=== PATIENT | male | born 1985 | race Caucasian/White ===

== ENCOUNTER 2016-09-14 15:52 | Emergency (ER) | payer BC, OTHER ==
[2016-09-14] MEDS ORDERED: Methocarbamol TAB* 500 MG PO ONE (17:40)
[2016-09-14] MEDS ORDERED: Ketorolac INJ* 30 MG/ML 1 ML VIAL IM ONE (17:40)
[2016-09-14] MEDS ORDERED: Ketorolac INJ* 60 MG/2 ML VIAL IM ONE (17:41)
[2016-09-14] MEDS ORDERED: oxyCODONE/Acetamin 5/325 MG* TAB PO ONE (17:42)
--- NOTE | 2016-09-14 18:29 | RAD ---
INDICATION: Back injury COMPARISON: None TECHNIQUE: Noncontrast axial source images was performed from the thoracolumbar junction to the sacrum. Coronal and and sagittal reformatted images were generated. FINDINGS: Vertebrae: There is no fracture or acute focal bony lesion. There is a chronic L5 spondylolysis. Alignment: The lumbar vertebrae are normally aligned. Central Canal: There are no significant CT abnormalities of the central canal or foramina. MR imaging is a more sensitive method to evaluate the canal and foramina. Intervertebral disc spaces: Moderate degenerative narrowing at L5-S1. Soft tissues: The paravertebral soft tissues are normal. Other: None IMPRESSION: CHRONIC, BILATERAL L5 SPONDYLOLYSIS WITH DEGENERATIVE DISC DISEASE. NO EVIDENCE OF ANTEROLISTHESIS.
--- NOTE | 2016-09-14 18:41 | ED ---
Back Pain - HPI Summary HPI Summary: 31M presents with back pain today. He was lifting something and felt a pull in his lower back. This occurred at work. He states that this is how he caused one of his disks to slip before. He says the pain is right across his entire lower back. He denies any numbness or tingling or pain down his leg. He states he has not had back pain in a while. He denies any loss of bowel or bladder or saddle anaesthesia. He denies any fever. He has not taken anything for pain. He denies any weakness and is still able to ambulate. - History of Current Complaint Chief Complaint: EDBackInjuryPain Stated Complaint: LOWER BACK INJURY-WORK INJURY Time Seen by Provider: 09/14/16 17:08 Pain Intensity: 5 - Allergies/Home Medications Allergies/Adverse Reactions: Allergies Allergy/AdvReac Type Severity Reaction Status Date / Time Penicillins Allergy Hives Verified 09/14/16 16:01 hayfever Allergy Sneezing Uncoded 09/14/16 16:01 PMH/Surg Hx/FS Hx/Imm Hx Endocrine/Hematology History: Denies: Hx Diabetes Cardiovascular History: Denies: Hx Hypertension, Hx Pacemaker/ICD Respiratory History: Reports: Hx Asthma - as child History: Denies: Hx Renal Disease Sensory History: Denies: Hx Hearing Aid Psychiatric History: Denies: Hx Panic Disorder - Surgical History Surgery Procedure, Year, and Place: tonsils Infectious Disease History: Denies: Hx Clostridium Difficile, Hx Hepatitis, Hx Human Immunodeficiency Virus (HIV), Hx of Known/Suspected MRSA, Hx Shingles, Hx Tuberculosis, Hx Known/ Suspected VRE, Hx Known/Suspected VRSA, History Other Infectious Disease, Traveled Outside the [place] in Last 30 Days - Family History Known Family History: Positive: None - Social History Alcohol Use: Rare Substance Use Type: Reports: None Smoking Status (MU): Current Every Day Smoker Amount Used/How Often: 1/2 ppd Review of Systems Negative: Fever Negative: Chest Pain Negative: Shortness Of Breath Positive: Myalgia - back pain All Other Systems Reviewed And Are Negative: Yes Physical Exam Triage Information Reviewed: Yes Vital Signs On Initial Exam: Initial Vitals Temp Pulse Resp BP Pulse Ox 98.6 F 96 16 127/89 97 09/14/16 16:01 09/14/16 16:01 09/14/16 16:01 09/14/16 16:01 09/14/16 16:01 Vital Signs Reviewed: Yes Appearance: Positive: Well-Appearing Skin: Positive: Warm, Dry Head/Face: Positive: Normal Head/Face Inspection Eyes: Positive: Normal, Conjunctiva Clear ENT: Positive: Normal ENT inspection, Pharynx normal, TMs normal Respiratory/Lung Sounds: Positive: Clear to Auscultation, Breath Sounds Present Cardiovascular: Positive: Normal, RRR Musculoskeletal: Positive: Limited @ - back, Other - tenderness across lower back, neg SLR Diagnostics - Vital Signs Vital Signs Temp Pulse Resp BP Pulse Ox 09/14/16 18:01 20 09/14/16 16:01 98.6 F 96 16 127/89 97 - Laboratory Lab Statement: Any lab studies that have been ordered have been reviewed, and results considered in the medical decision making process. - CT back CT Interpretation: Positive (See Comments) - IMPRESSION: CHRONIC, BILATERAL L5 SPONDYLOLYSIS WITH DEGENERATIVE DISC DISEASE. NO EVIDENCE OF ANTEROLISTHESIS. CT Interpretation Completed By: Radiologist Back Pain Course/Dx - Course Course Of Treatment: 31M presents with back pain today. He was lifting something and felt a pull in his lower back. This occurred at work. He states that this is how he caused one of his disks to slip before. He says the pain is right across his entire lower back. He denies any numbness or tingling or pain down his leg. He states he has not had back pain in a while. He denies any loss of bowel or bladder or saddle anaesthesia. He denies any fever. He has not taken anything for pain. He denies any weakness and is still able to ambulate. CT lumbar no acute changes. will d/c with muscle relaxer and steriod and told to follow up with primary. patient understands and agrees with plan. - Diagnoses Differential Diagnosis/HQI/PQRI: Positive: Herniated Disc, Strain, Sprain Provider Diagnoses: Back pain Discharge - Discharge Plan Condition: Good Disposition: HOME Prescriptions: Methocarbamol [Robaxin-750 MG TAB] 750 mg PO TID #15 tab Methylprednisolone [Medrol Dosepak 4 MG*] 4 mg PO .SEE CHRISTINA INSTRUCTION #1 packet Patient Education Materials: Back Pain (ED) Forms: *Work Release Referrals: Ruby Soria PA [Primary Care Provider] - Additional Instructions: Follow directions on package for Medrol pack Take muscle relaxers three times a day for 5 days Use ibuprofen or Tylenol for pain every 6 hours ice/heat area, move as much as possible Follow up with primary within 5 days Return to ED if develop any new or worsening symptoms
[2016-09-14 19:40] VITALS: BP 109/78
== END 2016-09-14 19:41 | disposition home or self-care (01) ==
LOC: ED 15:52
DX: M54.5 Low back pain (principal); F17.210 Nicotine dependence, cigarettes, uncomplicated
CPT/HCPCS: 72131; 96372; 99282; A9270-GY; J1885

== ENCOUNTER 2017-08-31 09:43 | Emergency (ER) | payer BC ==
[2017-08-31 10:15] VITALS: BP 127/87
--- NOTE | 2017-08-31 10:31 | UC ---
Back Pain HPI - HPI Summary HPI Summary: Dahlia Shearer, scribed for attending Catrachita Lisa MD. Pt is a 32 y/o M who presents to ED c/o lumbar back pain. Pt reports that on Saturday (3 days ago) he was working on his girlfriend's car during which he "twinged" his back. Then, upon waking up on (2 days ago) he began experiencing lumbar back pain, at about L4/L5, similar to prior disc herniations. Symptoms have begun radiating bilaterally down the LE and into the bilateral hips. On triage, pain is severe ranked 8/10, characterized as spasmodic, sharp and tight. Has been taking Tylenol and Advil which is not helping and cannot sleep secondary to pain. PMHx prior disc herniations for which he has seen a neurologist, though reports he has never had an MRI. Current symptoms are similar to prior herniations. Has an appointment with his PCP on Saturday (in 2 days). - History of Current Complaint Chief Complaint: UCBackPain Stated Complaint: BACK PAIN Time Seen by Provider: 08/31/17 10:23 Hx Obtained From: Patient Onset/Duration: Lasting Days - 2 days, Still Present Severity Currently: Severe Pain Intensity: 8 Pain Scale Used: 0-10 Numeric Back Pain: Is Discrete @ - Lumbar back (L4/L5), Radiates To - Bilateral hips and LE Character: Sharp, Spasmodic Aggravating Factor(s): Nothing Alleviating Factor(s): Nothing Associated Signs And Symptoms: Positive: Negative Related History: Similar Episode Dx As - Prior disc herniations - Allergies/Home Medications Allergies/Adverse Reactions: Allergies Allergy/AdvReac Type Severity Reaction Status Date / Time Penicillins Allergy unk Verified 08/31/17 10:17 hayfever Allergy Sneezing Uncoded 09/14/16 16:01 PMH/Surg Hx/FS Hx/Imm Hx - Additional Past Medical History Additional PMH: PMHx: Disc herniations Negative PMHx: HTN, DM Respiratory History: Asthma - As a child - Surgical History Surgical History: Yes Surgery Procedure, Year, and Place: tonsils - Family History Known Family History: Negative: Cardiac Disease - Social History Occupation: Employed Full-time Lives: With Family - S/o Alcohol Use: Rare Substance Use Type: None Smoking Status (MU): Former Smoker Amount Used/How Often: 1/2 ppd Review of Systems Constitutional: Negative Skin: Negative Eyes: Negative ENT: Negative Respiratory: Negative Cardiovascular: Negative Gastrointestinal: Negative Genitourinary: Negative Motor: Negative Neurovascular: Negative Musculoskeletal: Other: - Lumbar back pain radiating to bilateral LE and hips Neurological: Negative Psychological: Negative All Other Systems Reviewed And Are Negative: Yes Physical Exam - Summary Physical Exam Summary: Appearance: Well-appearing, Well-nourished Skin: Warm Eyes: Normal ENT: Normal Neck: Supple, nontender Respiratory: Clear to auscultation Cardiovascular: Regular rate, regular rhythm. Normal S1, S2. Abdomen: Soft, nontender Musculoskeletal: Moderate lower paraspinal tenderness at the level of L4-5 radiating to the bilateral buttocks and upper posterior thigh Neurological: Normal, A&Ox3 Psychiatric: Normal General: No acute distress Triage Information Reviewed: Yes Vital Signs: Initial Vital Signs Temp 98 F 08/31/17 10:10 Pulse 74 08/31/17 10:10 Resp 16 08/31/17 10:10 BP 127/87 08/31/17 10:10 Pulse Ox 100 08/31/17 10:10 Vital Signs Reviewed: Yes Back Pain Course/Dx - Differential Dx/Diagnosis Provider Diagnoses: Low back pain, lumbar radiculopathy Discharge - Sign-Out/Discharge Documenting (check all that apply): Patient Departure - Discharge - Discharge Plan Condition: Stable Disposition: HOME Prescriptions: Naproxen [Naproxen 500 mg tab] 500 mg PO BID 10 Days #20 tablet Tizanidine HCl 4 mg PO BEDTIME 5 Days #5 capsule Patient Education Materials: Lumbar Radiculopathy (ED), Back Pain (ED) Forms: *Work Release Referrals: Ruby Soria PA [Primary Care Provider] - 09/02/17 (Continue with scheduled follow up on Saturday. ) Additional Instructions: RETURN TO URGENT CARE OR ED FOR ANY CHANGING OR WORSENING SYMPTOMS. - Billing Disposition and Condition Condition: STABLE Disposition: Home
[2017-08-31] MEDS ORDERED: Ketorolac INJ* 60 MG/2 ML VIAL IM ONE (10:34)
== END 2017-08-31 10:50 | disposition home or self-care (01) ==
LOC: UCEAST 09:43
DX: M51.16 Intervertebral disc disorders with radiculopathy, lumbar region (principal); M54.5 Low back pain; Z91.09 Other allergy status, other than to drugs and biological substances; Z88.0 Allergy status to penicillin; Z87.891 Personal history of nicotine dependence
CPT/HCPCS: 96372; 99211; G0463; J1885

== ENCOUNTER 2018-06-23 07:36 | Emergency (ER) | payer BC ==
[2018-06-23] MEDS ORDERED: Ketorolac INJ* 30 MG/ML 1 ML VIAL IM ONE (07:53)
--- NOTE | 2018-06-23 07:57 | ED ---
Back Pain - HPI Summary HPI Summary: The patient is a 33 year old M presenting to [facility] accompanied by with a chief complaint of lower back pain radiating bilaterally down the front and back of the LE since yesterday 06/22/18. Patient reports swelling at lower back. Patient rested and used ice and heat after pain onset. 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 Per triage, patient believes he slipped his disc again and took Motrin 400mg at 0400 this morning. The patient rates the pain 8/10 in severity. Patient reports aggravating factors of movement, bending over, laying down, lifting, increased pain while walking on L leg, and increased pain at rest on R side. Patient also reported decreased ROM due to pain. Patient reported using icy-hot and Motrin as alleviating factors but stressed that they did not help the pain. Patient has a history of slipped discs in L4 and L5. - History of Current Complaint Chief Complaint: EDBackInjuryPain Stated Complaint: BACK PAIN POSS SLIPPED DISK PER PT Time Seen by Provider: 06/23/18 07:44 Hx Obtained From: Patient Onset/Duration: Sudden Onset, Lasting Days - 1, Still Present Onset/Duration: Started Days Ago - 1, Still Present Timing: Constant Back Pain Location: Is Discrete @ - lower back, Radiates To - bilateral LE Severity Initially: Severe Severity Currently: Severe Pain Intensity: 8 Pain Scale Used: 0-10 Numeric Aggravating Symptom(s): Movement, Lifting, Bending, Walking, Other - Lying on back Alleviating Symptom(s): Nothing Associated Signs And Symptoms: Positive: Swelling - at lower back - Allergies/Home Medications Allergies/Adverse Reactions: Allergies Allergy/AdvReac Type Severity Reaction Status Date / Time Penicillins Allergy unk Verified 06/23/18 07:48 hayfever Allergy Sneezing Uncoded 06/23/18 07:48 Home Medications: Home Medications NK [No Home Medications Reported] 06/23/18 [History Confirmed 06/23/18] PMH/Surg Hx/FS Hx/Imm Hx Endocrine/Hematology History: Denies: Hx Diabetes Cardiovascular History: Denies: Hx Hypertension, Hx Pacemaker/ICD Respiratory History: Reports: Hx Asthma - as child History: Denies: Hx Renal Disease Sensory History: Denies: Hx Hearing Aid Psychiatric History: Denies: Hx Panic Disorder - Surgical History Surgery Procedure, Year, and Place: tonsils Infectious Disease History: No Infectious Disease History: Denies: Hx Clostridium Difficile, Hx Hepatitis, Hx Human Immunodeficiency Virus (HIV), Hx of Known/Suspected MRSA, Hx Shingles, Hx Tuberculosis, Hx Known/ Suspected VRE, Hx Known/Suspected VRSA, History Other Infectious Disease, Traveled Outside the [place] in Last 30 Days - Family History Known Family History: Negative: Cardiac Disease - Social History Alcohol Use: Rare Hx Substance Use: No Substance Use Type: Reports: None Hx Tobacco Use: Yes Smoking Status (MU): Former Smoker Amount Used/How Often: 1/2 ppd Review of Systems Negative: Fever Positive: Myalgia - lower back pain radiating to bilateral LE, Decreased ROM All Other Systems Reviewed And Are Negative: Yes Physical Exam - Summary Physical Exam Summary: Appearance: The patient is well-nourished in no acute distress and in no acute pain. Skin: The skin is warm and dry and skin color reflects adequate perfusion. HEENT: The head is normocephalic and atraumatic. The pupils are equal and reactive. The conjunctivae are clear and without drainage. Nares are patent and without drainage. Mouth reveals moist mucous membranes and the throat is without erythema and exudate. The external ears are intact. The ear canals are patent and without drainage. The tympanic membranes are intact. Neck: The neck is supple with full range of motion and non-tender. There are no carotid bruits. There is no neck vein distension. Respiratory: Chest is non-tender. Lungs are clear to auscultation and breath sounds are symmetrical and equal. Cardiovascular: Heart is regular rate and rhythm. There is no murmur or rub auscultated. There is no peripheral edema and pulses are symmetrical and equal. Abdomen: The abdomen is soft and non-tender. There are normal bowel sounds heard in all four quadrants and there is no organomegaly palpated. Musculoskeletal: There is good capillary refill. There is no peripheral edema or calf tenderness elicited. Tenderness in perilumbar and sacral area. Positive bilateral straight leg test. Hyper-reflexivity. Non-sustained clonus Neurological: Patient is alert and oriented to person, place and time. The patient has symmetrical motor strength in all four extremities. Cranial nerves are grossly intact. Deep tendon reflexes are symmetrical and equal in all four extremities. Psychiatric: The patient has an appropriate affect and does not exhibit any anxiety or depression Triage Information Reviewed: Yes Vital Signs On Initial Exam: Initial Vitals Temp Pulse Resp BP Pulse Ox 97.7 F 91 18 141/79 97 06/23/18 07:37 06/23/18 07:37 06/23/18 07:37 06/23/18 07:37 06/23/18 07:37 Vital Signs Reviewed: Yes Diagnostics - Vital Signs Vital Signs Temp Pulse Resp BP Pulse Ox 06/23/18 07:37 97.7 F 91 18 141/79 97 - Laboratory Lab Statement: Any lab studies that have been ordered have been reviewed, and results considered in the medical decision making process. Back Pain Course/Dx - Course Course Of Treatment: Mr. Rahman has a history of low back pain and disc problems with an MRI done remotely. It's been aggravated a little more recently and then today he was pulling and twisting at work where he does a lot of lifting and his pain increased in intensity. It's in his low back and coming down the outside both his buttocks and thighs. He is ambulating fine but it hurts to move around. He denies any incontinence. He had a positive straight leg raise at 5 bilaterally. Abdomen give him some time off work and a muscle relaxer and he soon take ibuprofen at home he does not want to strong painkiller. - Diagnoses Provider Diagnoses: Low back sprain Discharge - Sign-Out/Discharge Documenting (check all that apply): Patient Departure - discharge Patient Received Moderate/Deep Sedation with Procedure: No - Discharge Plan Condition: Stable Disposition: HOME Prescriptions: LORazepam TAB(*) [Ativan TAB(*)] 1 mg PO Q6H PRN #10 tab MDD 4 PRN Reason: Pain Patient Education Materials: Low Back Strain (ED) Forms: *Work Release Referrals: Ruby Soria PA [Physician Fruit Picker Machine Operator] - 2 Days Additional Instructions: Please follow up with your primary care physician in 2 days. Return to the Emergency Department for any new or worsening symptoms. - Billing Disposition and Condition Condition: STABLE Disposition: Home - Attestation Statements Document Initiated by Scribe: Yes Documenting Scribe: Manav Pina Provider For Whom Scribe is Documenting (Include Credential): Klever Ann MD Scribe Attestation: IGuido Jacob Kolenda, scribed for Klever Ann MD on 06/23/18 at 1204. Scribe Documentation Reviewed: Yes Provider Attestation: The documentation as recorded by the jakobibGuido licona Jacob Kolenda accurately reflects the service I personally performed and the decisions made by , Klever Ann MD Status of Scribe Document: Viewed
[2018-06-23 08:13] VITALS: BP 120/90
== END 2018-06-23 08:12 | disposition home or self-care (01) ==
LOC: ED 07:36
DX: S33.5XXA Sprain of ligaments of lumbar spine, initial encounter (principal); X50.0XXA Overexertion from strenuous movement or load, initial encounter; Y99.0 Civilian activity done for income or pay; Z87.891 Personal history of nicotine dependence
CPT/HCPCS: 96372; 99282; J1885

== ENCOUNTER 2018-11-18 09:28 | Observation (INO) | payer BC ==
[~2018-11-18 09:28] MED LIST: Buffered Lidocaine 1% SYRIN* 1 ML/SYRINGE INTRADERM ONE; Dexamethasone IV* 4 MG/ML 1 ML (4 MG) IV SLOW PU ONE; Famotidine IV* 10 MG/ML 2 ML (20 mg) IV ONE; Vancomycin(*) 1,000 MG in NS 0.9% 250 ML* 250 ML IVPB SCH
[2018-11-18] MEDS ORDERED: Famotidine IV* 10 MG/ML 2 ML (20 mg) ONE (09:50)
[2018-11-18] MEDS ORDERED: Dexamethasone IV* 4 MG/ML 1 ML (4 MG) ONE (09:50)
[2018-11-18] MEDS: Lactated Ringers 1000 ML Bag* 1,000 ML IV SCH ×2 (10:23→15:22)
[2018-11-18] MEDS ORDERED: Midazolam* 1 MG/ML 5 ML VIAL (5 MG) ONE (10:51)
[2018-11-18] MEDS ORDERED: fentaNYL* 50 MCG/ML 5 ML VIAL (250 MCG VIAL) ONE (10:51)
[2018-11-18] MEDS ORDERED: Atracurium* 10 MG/ML 10 ML VIAL ONE (10:51)
[2018-11-18] MEDS ORDERED: Propofol* 10 MG/ML 20 ML BTL ONE (10:53)
[2018-11-18] MEDS ORDERED: Lidocaine 2% PF * 5 ML VIAL ONE (10:53)
[2018-11-18] MEDS ORDERED: Ondansetron INJ* 2 MG/ML VIAL ONE (10:53)
[2018-11-18] MEDS ORDERED: Bupivacaine 0.25% EPI 200,000* 30 ML SDV ONE (11:38)
[2018-11-18] MEDS ORDERED: Bacitracin INJECTION* 50,000 UNITS ONE (11:38)
[2018-11-18] MEDS ORDERED: Bupivacaine 0.25% W/EPI* 10 ML SDV ONE (12:13)
[2018-11-18] MEDS ORDERED: fentaNYL* 50 MCG/ML 2 ML VIAL (100 MCG VIAL) ONE ×2 (12:32→15:17)
[2018-11-18] MEDS ORDERED: Naloxone* 0.4 MG/ML 1 ML VIAL IV PRN (12:33)
[2018-11-18] MEDS ORDERED: DiMENhydriNATE IV* 50 MG/ML VIAL IV PUSH PRN (12:33)
[2018-11-18] MEDS ORDERED: Ondansetron INJ* 2 MG/ML VIAL IV PRN (12:33)
[2018-11-18] MEDS ORDERED: HYDROmorphone INJ1* 1 MG/ML SYRINGE IV PRN (12:33)
[2018-11-18] MEDS ORDERED: oxyCODONE/Acetamin 5/325 MG* TAB PO PRN ×2 (12:33→20:03)
[2018-11-18] MEDS ORDERED: Lactated Ringers 1000 ML Bag* 1,000 ML IV SCH (15:00)
[2018-11-18] MEDS: fentaNYL* 50 MCG/ML 2 ML VIAL (100 MCG VIAL) IV PRN ×2 (15:18→15:53)
[2018-11-18] MEDS ORDERED: HYDROcodone/ACETAMIN 5-325 MG* 1 TAB ONE (15:23)
[2018-11-18] MEDS ORDERED: oxyCODONE/Acetamin 5/325 MG* TAB ONE (15:23)
[2018-11-18] MEDS: HYDROcodone/ACETAMIN 5-325 MG* 1 TAB PO PRN ×2 (15:23→17:32)
[2018-11-18] MEDS: oxyCODONE/Acetamin 5/325 MG* TAB PO PRN (20:21)
--- NOTE | 2018-11-18 22:23 | OP ---
DATE OF OPERATION: 11/18/18 - ROOM #343 DATE OF : 85 SURGEON: Liam Stone MD BIOINFORMATICIAN: Haja Landry, Surgical PA. The case was done with the assistance of surgical PA because of the complexity of the case. ANESTHESIA: General. PRE-OP DIAGNOSIS: Right L4-L5 herniated nucleus pulposus. POST-OP DIAGNOSIS: Right L4-L5 herniated nucleus pulposus. OPERATIVE PROCEDURE: The patient underwent the right L4-L5 minimally invasive diskectomy. ESTIMATED BLOOD LOSS: 50 cc. COMPLICATIONS: None. SUMMARY: The patient is a very pleasant 33-year-old gentleman with complaints of back pain radiating to the right lower extremity. The patient has MRI findings consistent with a right L4-L5 disk herniation. The patient had a previous injury. He also had MRI findings consistent with L5-S1 spondylolysis and trace of spondylolisthesis. After failing conservative treatment modalities , we offered the option of surgical intervention for the above procedure. After explaining the expectations, limitations, possible complications of the procedure with complications including but not limited to bleeding, infection, risk of injury to adjacent structures, coma, paralysis, , need for additional procedures, anesthesia risks, stroke, blindness, cancer, instability , adjacent level disease, spinal fluid leak, recurrent disk herniation, instability, injury to intraabdominal contents, loss of bladder or bowel control , postoperative hematoma development, deep venous thrombosis, pulmonary embolism , need for tracheostomy or gastrostomy, need for prolonged hospitalization, prolonged ICU stay, prolonged rehabilitation. The patient was agreeable to proceed with surgery and informed consent was obtained. The patient understood that his condition may not improve and in fact may get worse after surgery and that he may need to have additional procedures in the future. He also understood that the operating plan may be modified according to intraoperative findings and conditions and that the procedure may be aborted or done in more than 1 stage. He also understood that he may require prolonged hospitalization or prolonged ICU stay, or prolonged rehabilitation. The same was discussed with the patient's family including his and his father. DESCRIPTION OF PROCEDURE: The patient was brought to the operating room and was placed under general anesthesia by the anesthesia team. He was carefully positioned prone on the Mukul frame on the Sid table and all bony prominences meticulously padded. His skin was prepped and draped in the standard fashion. After appropriate surgical pause and patient identification, a small paramedian incision over the L4-5 disk space was marked on the skin with the assistance of intraoperative fluoroscopic imaging. The skin was infiltrated with local anesthetic and incision was then performed with a #10 surgical blade. The incision was carried down to the subcutaneous tissue with Bovie cautery. The dorsal fascia was incised with the use of #10 surgical blade , then over series of dilators, a METRx tubular retractor system was introduced into the field. Under microscopic magnification, the right L4 hemilamina was exposed and the medial part of the facet, a hemilaminotomy and very limited medial facetectomy was performed with the use of high-speed drill and Kerrison punches. The ligamentum flavum was then gently reflected and resected and the thecal sac as well as the L5 nerve root were clearly identified. Foraminotomy was performed at that level and after gentle medial retraction of the thecal sac and the nerve root with nerve root retractor, the last disk ligaments protrusion was identified as expected from the preoperative imaging. The annulus fibrosus was incised with a #10 surgical blade and diskectomy was performed with the use of pituitary rongeurs and down-pushing curettes. At the end of the diskectomy, no compression phenomenon was identified over the thecal sac or the nerve root. After copious irrigation, confirmation of meticulous hemostasis, and meticulous inspection, the tubular retractor was gently removed and the incision was closed in layers with the 0 interrupted Vicryl sutures approximating the dorsal fascia and 2-0 Vicryl suture to approximate the subcutaneous tissue. The skin was covered with Dermabond. At the end of the procedure, all counts were reported to be correct. The patient remained hemodynamically stable throughout the case and at the end of the procedure, the patient was turned supine, was extubated and transferred to Recovery in excellent condition. [id number]/[facility] #: [id number] LICHA
[2018-11-19] MEDS: oxyCODONE/Acetamin 5/325 MG* TAB PO PRN ×3 (01:01→11:10)
[2018-11-19 08:57] VITALS: BP 130/68
--- NOTE | 2018-11-19 12:03 | PN ---
Progress Note - Progress Note Date of Service: 11/19/18 SOAP: Subjective: []33 y/o male post L4/L5 microdiscectomy POD #1 patient did well over night, he had no acute issues. He has been able to ambulate independently. He has voided and has passed flatulence, but has not had a bowel movement. Overall he feels his radicular pain has improved now has periodic numbness of the right leg, has some mild cramping in the right leg, mild discomfort from the procedure. Patient feels better and would like to go home if possible. Objective: [] Initial Vitals Temp Pulse Resp BP Pulse Ox 98.0 F 100 18 142/93 95 11/11/18 13:02 11/11/18 13:02 11/11/18 13:02 11/11/18 13:02 11/11/18 13:02 General: Patient laying flat in bed comfortable NAD, at bedside. Neruo: A&O x 3 Pupils equal in size CN Ii - XII grossly intact with no impairment. Upper motor strength 5/5 bilaterally through out. Right lower extremity motor strength 4+/5 with hip flexion, knee flexion and extension, EHL, Left 5/5 through out Assessment: [] 33 y/o male post microdiscectomy at L4/L5 POD # 1 patient doing well pain has improved since having surgery, he has been stable overnight and will possible discharged home today. Plan: [] 1) pain control as needed 2) continue to ambulate 3) Prepare discharge
--- NOTE | 2018-11-21 00:07 | DS ---
DISCHARGE SUMMARY: DATE OF ADMISSION: 11/18/18 DATE OF DISCHARGE: 11/19/18 ATTENDING PROVIDER: Dr. Stone * (DICTATED BY CHRISTEL ALSTON) DIAGNOSIS ON ADMISSION: Right L4-L5 herniated nucleus pulposus. DIAGNOSIS ON DISCHARGE: Right L4-L5 herniated nucleus pulposus. DISPOSITION ON DISCHARGE: Good. PLACE OF DISCHARGE: Home. HOSPITAL COURSE: This patient is a very pleasant 33-year-old gentleman with complaint of back pain radiating to the right lower extremity. The patient has MRI findings consistent with a right L4-L5 disk herniation. The patient had a previous injury. He also had MRI findings consistent with L5-S1 spondylosis and a trace of spondylolisthesis. After failing conservative treatment modalities, we offered surgical intervention in the form of a right L4-L5 minimally invasive diskectomy. After explaining the expectations, limitations, possible complications of the procedure and complications, the patient was consented for the procedure. He underwent surgery on 11/18/18, tolerated the procedure well, was placed in a short- stay unit for 24-hour observation. The patient did well. The pain was well controlled with medications. The patient was able to ambulate independently, transfer, also void and had flatulence. He tolerated orals. The next day, the patient was ready for discharge. Upon discharge, the patient was given instructions; no heavy lifting, bending, twisting, no driving, avoid hot tubs and pools. Follow up with primary care in 1 week. Follow up with Neurosurgery in 1 week for wound check. The patient understood the instructions and was discharged with pain medications sent to his pharmacy. The patient has an appointment to follow up in 1 week for a wound check. Thank you for allowing me to be a part of this patient's care. CHRISTEL ALSTON [id number]/[facility] #: [id number] MTDD
== END 2018-11-19 11:40 | disposition home or self-care (01) ==
LOC: OR 09:28 → SSU 16:56
PROVIDERS: ADMIT Neurological Surgery; ATTEND Neurological Surgery
DX: M51.16 Intervertebral disc disorders with radiculopathy, lumbar region (principal); M43.16 Spondylolisthesis, lumbar region; M54.9 Dorsalgia, unspecified; Z79.899 Other long term (current) drug therapy; Z88.0 Allergy status to penicillin; Z87.891 Personal history of nicotine dependence
CPT/HCPCS: 76000; A9270-GY; G0378; J1100; J2250; J2405; J2704; J3010; J3370